=== PATIENT | female | born 1985 | race Two or more races ===

== ENCOUNTER 2020-06-16 23:05 | Emergency (ER) | payer SELFPAY ==
[~2020-06-16] VITALS: Ht 165.1 cm; Wt 61.6 kg
[2020-06-16 23:25] VITALS: BP 126/72
--- NOTE | 2020-06-16 23:37 | PHYS DOC ---
Past Medical History Past Medical History: No Pertinent History Drug Use: None General Adult EDM: Chief Complaint: INSECT BITE HPI: HPI: Patient is a 35 year old female who has a 2-day history of a sore spot on the back of her left thigh near her gluteal fold. Patient describes moderate pain is worse with palpation of the pain is aching in nature. Patient has had chills but no fever. Patient had a similar episode on her back within the last couple months that drained on its own. Patient denies any trauma or obvious etiologies of the symptoms. Pain is nonradiating. Review of Systems: Review of Systems: Constitutional: Denies fever but has had some chills Eyes: Denies change in visual acuity. [] HENT: Denies nasal congestion or sore throat. [] Respiratory: Denies cough or shortness of breath. [] Cardiovascular: Denies chest pain or edema. [] GI: Denies abdominal pain, nausea, vomiting, bloody stools or diarrhea. [] : Denies dysuria. [] Musculoskeletal: Denies back pain or joint pain. [] Integument: Complains of rash to the left leg Neurologic: Denies headache, focal weakness or sensory changes. [] Endocrine: Denies polyuria or polydipsia. [] Lymphatic: Denies swollen glands. [] Psychiatric: Denies depression or anxiety. [] Heart Score: Risk Factors: Risk Factors: DM, Current or recent (<one month) smoker, HTN, HLP, family history of CAD, obesity. Risk Scores: Score 0 - 3: 2.5% MACE over next 6 weeks - Discharge Home Score 4 - 6: 20.3% MACE over next 6 weeks - Admit for Clinical Observation Score 7 - 10: 72.7% MACE over next 6 weeks - Early Invasive Strategies Current Medications: Current Medications Medications (Trade) Dose Ordered Sig/[facility] Start Time Stop Time Status Last Admin Dose Admin Lidocaine/ Epinephrine (LIDOCAINE 1%-EPI 1:100,000 Multi-Dose) 20 ml 1X ONCE 06/16/20 23:30 06/16/20 23:31 UNV Physical Exam: PE: Constitutional: Well developed, well nourished, no acute distress, non-toxic appearance. [] HENT: Normocephalic, atraumatic, bilateral external ears normal, no trismus, nose normal. [] Eyes: PERRLA, EOMI, conjunctiva normal, no discharge. [] Neck: Normal range of motion, no tenderness, supple, no stridor. [] Cardiovascular:Heart rate regular rhythm, peripheral pulses intact cap refill is brisk Lungs & Thorax: Bilateral breath sounds clear, no respiratory distress Abdomen: Soft, nondistended Skin: Indurated erythematous area on the left posterior thigh near the buttocks that is tender. Back: No tenderness, no CVA tenderness. [] Extremities: , no cyanosis, no clubbing, ROM intact, no edema. [] Neurologic: Alert and oriented X 3, normal motor function, normal sensory function, no focal deficits noted. [] Psychologic: Affect normal, judgement normal, mood normal. [] Current Patient Data: Vital Signs: Vital Signs Date Time Temp Pulse Resp B/P (MAP) Pulse Ox O2 Delivery O2 Flow Rate FiO2 06/16/20 23:25 97.1 88 14 126/72 (90) 99 Room Air 97.1 EKG: EKG: [] Radiology/Procedures: Radiology/Procedures: Procedure note: Incision and drainage Clinical indication thigh abscess After obtaining verbal consent the abscess on the left posterior thigh was anesthetized with 1% lidocaine with epinephrine after Betadine prep. An 11 blade was used to make an incision and a large amount of purulent material was expressed, pockets were probed rate up loculations and wound was copiously irri gated with normal saline. The wound was then packed with 1/2 inch gauze and a dressing was applied. Patient tolerated well Course & Med Decision Making: Course & Med Decision Making Pertinent Labs and Imaging studies reviewed. (See chart for details) [] Blayne Disclaimer: Blayne Disclaimer: This electronic medical record was generated, in whole or in part, using a voice recognition dictation system. Departure Departure Impression: Primary Impression: Abscess of left thigh Disposition: 01 HOME, SELF-CARE Condition: STABLE Referrals: ER Return here for packing removal in 2 days Patient Instructions: Abscess, Abscess, Care After Additional Instructions: EMERGENCY DEPARTMENT GENERAL DISCHARGE INSTRUCTIONS THANK YOU for coming to [facility] Emergency Department (ED) today and trusting us with your care. We trust that you had a positive experience in our Emergency Department. If you wish to speak to the department Management you can contact the mathematics department chair at . YOUR FOLLOW UP INSTRUCTIONS ARE FOLLOWS: Do you have a private doctor? If you do not have a private doctor, please ask for a resource list of physicians or clinics that may be able to assist you with follow up care. The Emergency Physician has interpreted your x-rays. The X-ray specialist will also review them. If there is a change in the findings you will be notified in 48 hours when at all possible. A lab test or lab culture may have been done, your results will be reviewed and you will be notified if you need a change in treatment. ADDITIONAL INSTRUCTIONS AND INFORMATION Your care today has been supervised by a physician who is specially trained in emergency care. Many problems require more than one evaluation for a complete diagnosis and treatment. We recommend that you schedule your follow up appointment as recommended to ensure complete treatment of your illness or injury. If you are unable to obtain follow up care and continue to have a problem, or if your condition worsens we recommend that you return to the ED. We are not able to safely determine your condition over the phone nor are we able to give sound medical advice over the phone. For these safety reasons, if you call for medical advice we will ask you to come to the ED for further evaluation If you have any questions regarding these discharge instructions please call the ED at . SAFETY INFORMATION In the interest of safety, wellness, and injury prevention; we encourage you to wear your seatbelt, if you smoke; quit smoking, and we encourage your family to use protective helmet for bicycling and other sporting events that present an increased risk for head injury. IF YOUR SYMPTOMS WORSEN OR NEW SYMPTOMS DEVELOP, OR YOU HAVE CONCERNS ABOUT YOUR CONDITION; OR IF YOUR CONDITION WORSENS WHILE YOU ARE WAITING FOR YOUR FOLLOW UP APPOINTMENT; EITHER CONTACT YOUR PRIMARY CARE DOCTOR, THE PHYSICIAN WHOSE NAME AND NUMBER YOU WERE GIVEN, OR RETURN TO THE ED IMMEDIATELY. Scripts Hydrocodone/Apap 5-325 (NORCO 5-325 TABLET) 1 Each Tablet 1-2 EACH PO PRN Q6HRS PRN for PAIN, #15 as needed for pain Prov: GLORIA LAU MD 06/17/20 Sulfamethoxazole/Trimethoprim (BACTRIM 400-80 MG TABLET) 1 Each Tablet 1 TAB PO BID for 10 Days, #20 TAB 0 Refills Prov: GLORIA LAU MD 06/17/20 GLORIA LAU MD Jun 16, 2020 23:37
[2020-06-16] MEDS ORDERED: LIDOCAINE 1%/EPI 1:100,000 20 ML VIAL. INJ ONE (23:45)
[2020-06-17] MEDS ORDERED: HYDR-3164 PO (00:03)
[2020-06-17] MEDS ORDERED: SULF1TAB23 PO (00:03)
[2020-06-17] MEDS ORDERED: SMZ/TMP 800/160MG TABLET. PO ONE (00:15)
[2020-06-17] MEDS ORDERED: HYDROcodone/APAP 5/325MG 1 TAB TABLET PO ONE (00:15)
[2020-06-18] MEDS ORDERED: CLIN150C14 PO (23:23)
== END 2020-06-17 00:17 | disposition home or self-care (01) ==
LOC: ER 23:05
DX: L02.416 Cutaneous abscess of left lower limb (principal); L53.9 Erythematous condition, unspecified
CPT/HCPCS: 10061; 99284; J3490

== ENCOUNTER 2020-06-18 18:34 | Emergency (ER) | payer SELFPAY ==
[~2020-06-18] VITALS: Ht 165.1 cm; Wt 59.0 kg
[~2020-06-18 18:34] MED LIST: HYDR-3164 PO; SULF1TAB23 PO
[2020-06-18 23:08] VITALS: BP 98/54
[2020-06-18] MEDS ORDERED: CLIN150C14 PO (23:23)
--- NOTE | 2020-06-18 23:23 | PHYS DOC ---
Past Medical History Past Medical History: No Pertinent History Additional Past Medical Histor: ABCESS Past Surgical History: No Surgical History Smoking Status: Current Some Day Smoker Alcohol Use: None Drug Use: None General Adult EDM: Chief Complaint: WOUND CHECK HPI: HPI: Patient is a 35 year old female who presents to the emergency department with need for packing removal and wound recheck of the abscess is on the back of her left leg. Patient denies any fever. She continues to report discomfort, erythema, and warmth at the site. She denies any numbness, tingling, or weakness of the affected extremity. Patient reports that she has been taking medications that were previously prescribed at her last ER visit. She currently rates the pain 8 out of 10 on the pain scale, she denies any alleviating factors, the pain is worse with palpation. The patient spoke limited Hebrew therefore the [employer], official court interpreter line was used to speak with the patient. Review of Systems: Review of Systems: Constitutional: Denies fever or chills. [] Musculoskeletal: Denies back pain or joint pain. [] Integument: See HPI Neurologic: Denies focal weakness or sensory changes. [] Lymphatic: Denies swollen glands. [] Complete ROS is negative unless otherwise stated in the HPI. Heart Score: Risk Factors: Risk Factors: DM, Current or recent (<one month) smoker, HTN, HLP, family history of CAD, obesity. Risk Scores: Score 0 - 3: 2.5% MACE over next 6 weeks - Discharge Home Score 4 - 6: 20.3% MACE over next 6 weeks - Admit for Clinical Observation Score 7 - 10: 72.7% MACE over next 6 weeks - Early Invasive Strategies Allergies: Allergies: Allergies Coded Allergies Type Severity Reaction Last Updated Verified No Known Drug Allergies 06/16/20 No Physical Exam: PE: Constitutional: Well developed, well nourished, no acute distress, non-toxic appearance. [] HENT: Normocephalic, atraumatic, bilateral external ears normal, nose normal. [] Eyes: PERRLA, EOMI, conjunctiva normal, no discharge. [] Neck: Normal range of motion, no stridor. [] Cardiovascular:Heart rate regular rhythm Lungs & Thorax: Respirations even and unlabored, no retractions, no respiratory distress Skin: Warm, dry; 1.5 cm open area noted to posterior left thigh with packing in place, localized erythema surrounding the incision site with warmth present Extremities: No cyanosis, ROM intact, no edema. [] Neurologic: Alert and oriented X 3, no focal deficits noted. [] Psychologic: Affect normal, judgement normal, mood normal. [] Current Patient Data: Vital Signs: Vital Signs Date Time Temp Pulse Resp B/P (MAP) Pulse Ox O2 Delivery O2 Flow Rate FiO2 06/18/20 19:52 98.1 75 20 94/32 (52) 100 Room Air 98.1 EKG: EKG: [] Radiology/Procedures: Radiology/Procedures: I was able to remove the packing from the patient's wound of her left posterior thigh, there was no blood loss, patient tolerated procedure well, no complications. [] Course & Med Decision Making: Course & Med Decision Making Pertinent Labs and Imaging studies reviewed. (See chart for details) 35-year-old female presents emergency department for reevaluation of wound and packing removal. The site continued to be red and very tender to touch. I advised the patient to discontinue use of Bactrim and wrote a new prescription for clindamycin. I encouraged patient to continue taking the hydrocodone that was previously prescribed as needed for pain. I recommended application of moist heat to the area at least twice a day and as needed for comfort. I encouraged patient to follow-up with her primary care doctor for wound recheck next week, return to the ER if symptoms worsen or fever develop. Patient verbalized an understanding of home care, medications, follow-up, and return to ED instructions and was in agreement with the plan of care. [] Blayne Disclaimer: Blayne Disclaimer: This electronic medical record was generated, in whole or in part, using a voice recognition dictation system. Departure Departure Impression: Primary Impression: Encounter for removal of abscess packing Additional Impression: Encounter for wound re-check Disposition: 01 HOME, SELF-CARE Condition: STABLE Referrals: NO PCP (PCP) Patient Instructions: Abscess, Care After Additional Instructions: Stop taking the Bactrim that was previously prescribed. You may continue taking hydrocodone as needed. Fill the prescription(s) and use as directed. Change the dressing twice daily and apply warm, moist packs to the area to help decrease discomfort. Follow up with your primary care doctor next week, return to the ER sooner if your symptoms worsen or fever develops. [facility] [address] [place] [address] [facility] [address] [place] [address] [facility] [address] [facility] [place] [address] [facility] [address] [place] [address] [facility] [address] [place] [address] [address] [place] [address] [address] [place] [address] [facility] [address] [place] [address] [facility] [address] [place] [address] [facility] [address] [place] [address] Scripts Clindamycin Hcl (CLINDAMYCIN HCL) 150 Mg Capsule 450 MG PO TID for 7 Days, #63 CAP 0 Refills Prov: PAIGE SINGER APRN 06/18/20 PAIGE SINGER APRN Jun 18, 2020 23:23
== END 2020-06-18 23:25 | disposition home or self-care (01) ==
LOC: ER 18:34
DX: L02.416 Cutaneous abscess of left lower limb (principal); Z48.01 Encounter for change or removal of surgical wound dressing; I10 Essential (primary) hypertension
CPT/HCPCS: 99283